=== PATIENT | female | born 1995 | race African-American/Black ===

== ENCOUNTER 2021-11-05 09:28 | Emergency (ER) | payer OTHER ==
[2021-11-05 09:50] VITALS: BP 116/78; PULSE 89; TEMP 98.9; BMI 32.1
== END 2021-11-05 11:39 | disposition home or self-care (01) ==
LOC: JERFT 09:28
DX: R05.9 Cough, unspecified (principal); Z11.52 Encounter for screening for COVID-19
CPT/HCPCS: 0241U-QW; 99283-25

== ENCOUNTER 2021-12-13 08:52 | Emergency (ER) | payer OTHER ==
[2021-12-13 09:03] VITALS: BP 122/72; PULSE 87; TEMP 98.6; BMI 31.3
== END 2021-12-13 10:05 | disposition home or self-care (01) ==
LOC: JER 08:52
DX: U07.1 COVID-19 (principal)
CPT/HCPCS: 0241U-QW; 99283-25

== ENCOUNTER 2022-05-26 14:42 | Emergency (ER) | payer OTHER ==
[2022-05-26 15:00] VITALS: BP 125/84; PULSE 97; RESP 18; TEMP 98.3; BMI 32.3
== END 2022-05-26 18:59 | disposition home or self-care (01) ==
LOC: JERFT 14:42 → JER 14:42 → JERFT 18:59
DX: B35.4 Tinea corporis (principal)
CPT/HCPCS: 84703; 99283-25